=== PATIENT | female | born 1990 | race African-American/Black ===

== ENCOUNTER 2022-02-23 14:43 | Emergency (ER) | payer SELFPAY ==
[~2022-02-23] VITALS: Ht 160 cm; Wt 99.8 kg
[2022-02-23] MEDS ORDERED: FOLIC ACID (14:57)
[2022-02-23] MEDS ORDERED: HYDROXYUREA (14:57)
[2022-02-23] MEDS ORDERED: VITAMIN C (14:57)
[2022-02-23] MEDS ORDERED: ASPI81TA31 PO (14:57)
[2022-02-23] MEDS ORDERED: IV D5W 1000ML 1,000 ML IV ONE (16:00)
[2022-02-23] MEDS ORDERED: HYDROMORPHONE 1 MG/1 ML DISP.SYRIN IV ONE ×3 (16:00→18:30)
[2022-02-23] MEDS ORDERED: diphenhydrAMINE 50 MG/1 ML VIAL IV ONE ×2 (16:00→18:30)
[2022-02-23] MEDS ORDERED: diphenhydrAMINE 50 MG/1 ML VIAL ONE ×2 (16:23→18:21)
[2022-02-23] MEDS ORDERED: HYDROMORPHONE 1 MG/1 ML DISP.SYRIN ONE ×3 (16:23→18:21)
[2022-02-23] MEDS ORDERED: OXYC-133 PO (18:28)
== END 2022-02-23 18:36 | disposition home or self-care (01) ==
LOC: ER 14:43
DX: D57.1 Sickle-cell disease without crisis (principal); M25.552 Pain in left hip; M25.551 Pain in right hip; M25.562 Pain in left knee; M25.561 Pain in right knee; Z86.73 Personal history of transient ischemic attack (TIA), and cerebral infarction without residual deficits; Z88.1 Allergy status to other antibiotic agents; Z88.0 Allergy status to penicillin
CPT/HCPCS: A4663; J1170; J1200; J7060

== ENCOUNTER 2022-03-07 14:23 | Emergency (ER) | payer SELFPAY ==
[~2022-03-07] VITALS: Ht 160 cm; Wt 97.5 kg
[~2022-03-07 14:23] MED LIST: ASPI81TA31 PO; FOLIC ACID; HYDROXYUREA; OXYC-133 PO; VITAMIN C
--- NOTE | 2022-03-07 15:15 | NUR ---
Dr Winn at the bedside for MSE.
[2022-03-07] MEDS ORDERED: ONDANSETRON 4 MG/2 ML VIAL IV ONE (15:30)
[2022-03-07] MEDS ORDERED: IV NORMAL SALINE 1000 ML BAG IV ONE (15:30)
[2022-03-07] MEDS ORDERED: KETOROLAC TROMETHAMINE 30 MG INJ IVP ONE (15:45)
[2022-03-07] MEDS ORDERED: ONDANSETRON 4 MG/2 ML VIAL ONE (15:49)
[2022-03-07] MEDS ORDERED: KETOROLAC TROMETHAMINE 30 MG INJ ONE (15:49)
[2022-03-07] MEDS ORDERED: HYDROMORPHONE 1 MG/1 ML DISP.SYRIN ONE (15:53)
[2022-03-07] MEDS ORDERED: diphenhydrAMINE 50 MG/1 ML VIAL ONE (15:56)
[2022-03-07 16:04] LABS: HEMATOCRIT 36.9 % (31.2-41.9); MEAN CORPUSCULAR HEMOGLOBIN 22.2 uug (24.7-32.8); MEAN CORPUSCULAR VOLUME 69.6 fL (75.5-95.3); PLATELET COUNT (AUTO) 329 K/uL (179-408)
[2022-03-07] MEDS ORDERED: HYDROMORPHONE 1 MG/1 ML DISP.SYRIN IV ONE (16:15)
[2022-03-07] MEDS ORDERED: diphenhydrAMINE 50 MG/1 ML VIAL IV ONE (16:15)
[2022-03-07 16:25] LABS: BILIRUBIN,DIRECT 0.1 mg/dL (0.0-0.2); BILIRUBIN,TOTAL 0.3 mg/dL (0.2-1.0); POTASSIUM 3.9 mmol/L (3.5-5.1); TOTAL PROTEIN, SERUM 8.2 g/dL (6.4-8.2)
--- NOTE | 2022-03-07 17:04 | NUR ---
[facility]. Pt rep report, there was none and in fact pt is not a [employer] member.
--- NOTE | 2022-03-07 17:36 | NUR ---
IV removed. Catheter intact and site benign. Pressure and 4x4 gauze applied to site. No bleeding noted.
--- NOTE | 2022-03-07 17:37 | NUR ---
Patient discharged to home in stable condition. Written and verbal after care instructions given. Patient verbalizes understanding of instructions. Stressed follow up or return to ER for worsening s/s.
[2022-03-07 17:41] VITALS: BP 110/67
[2022-03-07 23:06] LABS: EOSINOPHILS % (MANUAL) 4 % (0-8); LYMPHOCYTES % (MANUAL) 23 % (20-40); MONOCYTES % (MANUAL) 6 % (2-10); NEUTROPHILS % (MANUAL) 67 % (42-75)
== END 2022-03-07 17:42 | disposition home or self-care (01) ==
LOC: ER 14:23
DX: D57.1 Sickle-cell disease without crisis (principal); G89.29 Other chronic pain; Z86.73 Personal history of transient ischemic attack (TIA), and cerebral infarction without residual deficits; Z88.0 Allergy status to penicillin; Z88.1 Allergy status to other antibiotic agents; Z91.041 Radiographic dye allergy status
CPT/HCPCS: 36415; 80048; 80076; 83615; 84702; 85007; 85025; 96361; 96374; 96375; 99285; J1170; J1200; J2405; J7040; 70030-TC; A4663; J1885